=== PATIENT | female | born 2000 | race Two or more races ===

== ENCOUNTER 2024-12-28 23:13 | Emergency (ER) | payer MEDICAID, SELFPAY ==
[2024-12-28 23:18] VITALS: BMI 21.7
[2024-12-29 00:27] VITALS: BP 122/83; PULSE 74; RESP 18; TEMP 37.1; O2SAT 98
--- NOTE | 2024-12-29 00:34 | PC.NURSE ---
[facility] AT BEDSIDE TALKING WITH PATIENT
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
--- NOTE | 2024-12-29 01:34 | PC.NURSE ---
PATIENT WAITING FOR DETECTIVES TO ARRIVE SO SHE CAN BE TAKEN TO [facility] FOR SART EXAM
== END 2024-12-29 03:23 | disposition home or self-care (01) ==
PROVIDERS: Emergency Provider Emergency Medicine; PCP Family Medicine
DX: T74.21XA Adult sexual abuse, confirmed, initial encounter (principal)
CPT/HCPCS: 99281